=== PATIENT | male | born 1955 | race Caucasian/White ===

== ENCOUNTER 2018-04-11 06:10 | Day surgery (SDC) | payer OTHER ==
[2018-04-10 12:25] VITALS: BMI 38.4
[~2018-04-11 06:10] MED LIST: ACETAMINOPHEN 325 MG TABLET (FP) PO PRN; BSS (NA/CA/MG/K) BALANCED SALT SOLUTION OPHTH SOLN 15 ML BOTTLE OD ONE; LIDOCAINE 1%/EPI 1:100000 (50 ML MULTI DOSE VIAL) INF ONE; OFLOXACIN 0.3% OPHTHALMIC SOLUTION 5 ML BOTTLE OP SCH; POVIDONE-IODINE 5% OPHTHALMIC PREP 30 ML SOLUTION OD ONE; TETRACAINE 0.5% OPHTH SOLN 2 ML BOTTLE OD ONE; TRIAMCINOLONE ACET 40MG/1ML VIAL IJ ONE
[2018-04-11] MEDS ORDERED: OFLOXACIN 0.3% OPHTHALMIC SOLUTION 5 ML BOTTLE ONE (07:06)
[2018-04-11] MEDS ORDERED: LIDOCAINE 1%/EPI 1:100000 (20 ML MULTI DOSE VIAL) ONE (07:13)
[2018-04-11] MEDS ORDERED: TRIAMCINOLONE ACET 40MG/1ML VIAL ONE (07:14)
[2018-04-11] MEDS ORDERED: VANCOMYCIN 500 MG VIAL (RESTRICTED TO ID ONLY) ONE (07:16)
[2018-04-11] MEDS ORDERED: WATER FOR INJ,STERILE 10 ML ONE (07:17)
[2018-04-11] MEDS ORDERED: TETRACAINE 0.5% OPHTH SOLN 2 ML BOTTLE ONE (07:17)
[2018-04-11] MEDS ORDERED: OFLOXACIN 0.3% OPHTHALMIC SOLUTION 5 ML BOTTLE OD ONE ×3 (07:20→07:30)
[2018-04-11] MEDS ORDERED: LIDOCAINE HCL 2% JELLY (5 ML/TUBE) ONE (07:59)
[2018-04-11] MEDS ORDERED: MIDAZOLAM HCL 2 MG/2 ML SINGLE DOSE VIAL ONE (07:59)
[2018-04-11] MEDS ORDERED: LIDOCAINE HCL 2% JELLY (5 ML/TUBE) TP ONE (08:07)
[2018-04-11] MEDS ORDERED: POVIDONE-IODINE 5% OPHTHALMIC PREP 30 ML SOLUTION OD ONE (08:10)
[2018-04-11] MEDS ORDERED: BSS (NA/CA/MG/K) BALANCED SALT SOLUTION OPHTH SOLN 15 ML BOTTLE OD ONE (08:19)
[2018-04-11] MEDS ORDERED: LIDOCAINE 1%/EPI 1:100000 (50 ML MULTI DOSE VIAL) INF ONE ×2 (08:19)
[2018-04-11] MEDS ORDERED: TRIAMCINOLONE ACET 40MG/1ML VIAL IJ ONE (08:46)
--- NOTE | 2018-04-11 09:21 | OP ---
DATE OF OPERATION: DATE OF DICTATION: 04/11/2018 PREOPERATIVE DIAGNOSIS: Recurrent pterygium, right eye. POSTOPERATIVE DIAGNOSIS: Recurrent pterygium, right eye. PROCEDURE: Excision of raccoon pterygium, right eye, with conjunctival autograft. ANESTHESIA: Topical, MAC. COMPLICATIONS: None. DESCRIPTION OF PROCEDURE: The patient was brought to the operating room and correctly identified along with the operative site. He was then prepped and draped in the usual sterile fashion including 5% Betadine solution in the conjunctival sac and an eyelid drape. An eyelid speculum was then placed into the right eye. Topical lidocaine 1% with epinephrine was placed for analgesia. The pterygium was then inspected and noted to be covering the pupil. The posterior border was marked with a marking pen, and 2 relaxing incisions were made superiorly and inferiorly with Carlos scissors. Blunt dissection beneath the pterygium was then performed down to bare sclera with the carlos scissors. The pterygium was noted to be thin. The pterygium was then bluntly dissected from the corneal surface as well using the Carlos scissors. After the pterygium was excised from the corneal surface, the cornea was noted to be fairly clear of any residual tissue, but a small amount of polishing with a 57 blade as well as luis anil was performed on the cornea. The pterygium was then elevated, and blunt dissection was performed beneath in the subconjunctival space using weck cell sponges and a cotton tip applicator. The pterygium was then excised at its base by elevating it and removing it with Carlos scissors. The specimen was sent for histopathologic evaluation. Care was made not to damage the medial rectus tendon. Some of the subconjunctival tissue was dissected as well. The conjunctival defect was measured and was 7 mm vertically x 8 mm horizontally. Attention was then placed to the superotemporal conjunctiva, and an appropriate sized conjunctival membrane was created by first marking the area with calipers and then injecting lidocaine 1% with epinephrine to elevate the conjunctiva. Using sharp Carlos scissors, the graft was created and freed. It was then brought over to the nasal conjunctival defect and sutured in place with a total of five 10-0 nylon sutures. No wound gape was noted. Subconjunctival Kenalog was placed at the operative site, and topical vancomycin given, the eye patched and shielded and patient discharged from the operating room in a stable condition. AARON BATISTA M.D. [id number] MTDD
[2018-04-11 09:26] VITALS: TEMP 97.5
[2018-04-11 11:25] VITALS: BP 115/66; PULSE 70
--- NOTE | 2018-04-12 12:12 | PATH ---
Surgical Pathology Report Patient Name: EVANS HORTON [facility]. Rec. #: [id number] /Age/Gender: 1955 (Age: 62) / M Account: [id number] Location: [facility] SURGICAL Taken: 04/11/2018 Received: 04/11/2018 Reported: 04/12/2018 Physicians: Chandan Rodríguez M.D. Specimen(s) Received PTERYGIUM RIGHT EYE Clinical History Recurrent pterygium right eye Final Diagnosis EYE, RIGHT, PTERYGIUM, EXCISION: CONSISTENT WITH PTERYGIUM. Electronically Signed Tyra Pabon M.D. Gross Description Received in formalin labeled "pterygium right eye, are 2 rogers-brown portions of soft tissue measuring 0.6 and 0.7 cm in greatest dimension. The specimens are submitted in toto in one cassette. /04/11/2018 saudi04/11/2018
== END 2018-04-11 09:50 | disposition home or self-care (01) ==
LOC: JASU-SURG 06:10 → EDSEX 09:00 → JASU-SURG 09:50
PROVIDERS: ATTEND Ophthalmology
PROC: 08U007Z Supplement of Right Eye with Autologous Tissue Substitute, Open Approach (ICD-10-PCS; principal; 2018-04-11 08:00)
DX: H11.061 Recurrent pterygium of right eye (principal)
CPT/HCPCS: 88304-TC

== ENCOUNTER 2020-10-27 15:41 | Emergency (ER) | payer OTHER ==
[2020-10-27 16:11] VITALS: BMI 41.3
[2020-10-27] MEDS ORDERED: BAMLANIVIMAB 700 MG, ETESEVIMAB 1,400 MG in SODIUM CHLORIDE 250 ML IVPB ONE (16:32)
[2020-10-27 20:17] VITALS: BP 130/87; PULSE 87; TEMP 98.4
[2020-10-28 06:54] LABS: BASO % 0.3 % (0-2.0); EOS % 0.1 % (0-4.5); HEMATOCRIT 43.5 % (35.4-49); HEMOGLOBIN 14.7 GM/dL (11.7-16.9); LYMPH % 12.4 % (8-40); MCHC 33.7 g/dl (32.0-35.9); MEAN PLT VOLUME 10.1 fl (7.5-11.1); MONO % 4.9 % (3.8-10.2); NEUT % 82.3 % (42.8-82.8); PLATELET COUNT 178 K/MM3 (134-434); RBC 5.06 M/mm3 (4.00-5.60); RDW 14.4 % (11.9-15.9); WHITE BLOOD COUNT 6.6 K/mm3 (4.0-10.0)
[2020-10-28 07:10] LABS: POTASSIUM 5.3 mmol/L (3.5-5.1)
[2020-10-28 07:11] LABS: CALCIUM 8.8 mg/dL (8.5-10.1)
[2020-10-28 07:12] LABS: BLOOD UREA NITROGEN 20.2 mg/dL (7-18)
[2020-10-28 07:15] LABS: CREATININE 0.7 mg/dL (0.55-1.3)
== END 2020-10-27 20:22 | disposition home or self-care (01) ==
LOC: JER 15:41
DX: U07.1 COVID-19 (principal)
CPT/HCPCS: 36415; 80048; 85025; 96374; 99284-25; M0239; Q0239; Q0245